=== PATIENT | male | born 1975 | race Caucasian/White ===

== ENCOUNTER 2018-03-30 09:14 | Emergency (ER) | payer BC ==
[~2018-03-30] VITALS: Ht 177.8 cm; Wt 96.3 kg
[~2018-03-30 09:14] MED LIST: ADVIL200 M1 PO; BENICAR5 MG PO; CIPRO HC OTIC S10 ML RIGHT EAR; ZYRTEC10 M2 PO
[2018-03-30] MEDS ORDERED: PROVENTIL HFA6.7 GM IH (12:06)
[2018-03-30] MEDS ORDERED: ZITHROMAX Z-PA250 MG PO (12:07)
[2018-03-30] MEDS ORDERED: PREDNISONE20 MG PO (12:07)
[2018-03-30 12:17] VITALS: BP 130/67
== END 2018-03-30 12:20 | disposition home or self-care (01) ==
LOC: EME 09:14
DX: J20.9 Acute bronchitis, unspecified (principal)
CPT/HCPCS: 71046; 94640; 99281; 99285